=== PATIENT | female | born 1975 | race Caucasian/White ===

== ENCOUNTER → 2018-08-02 | Outpatient (CLI) | payer OTHER ==
[~2018-08-02] MED LIST: ACETAMINOPHEN-1 EAC1 PO; ALBUTEROL INHAL17 GM IH; CHERATUSSIN DA480 ML PO; COLACE100 MG; FLEXERIL PO; IBUPROFEN 600600 M1; LORTAB 5 MG/5001 TAB; OMEPRAZOLE40 MG PO; PREDNISONE 20 M20 MG PO; TOPAMAX50 MG PO; ZPAK PO
--- NOTE | 2018-08-05 13:07 | PATH ---
[address] [address] PATHOLOGY RPT PROCEDURE Name: ARCHANAJEFFREY Room: [facility]#: [id number] Admission: 08/02/18 Date of : 75 Discharge: Report #: [id number] Path Case #: [id number] Note [facility] Accession Number: [id number] TESTS RESULT FLAG UNITS REF RANGE LAB Clinician Provided Cytology Information No. of containers..01 Other (Miscellaneous) Source: LT BRST ABSCESS DIAGNOSIS: LT BRST ABSCESS NEGATIVE FOR MALIGNANT CELLS. EXTENSIVE ACUTE INFLAMMATORY CELLS TYPICAL OF ABSCESS. THIS INTERPRETATION INCLUDES EVALUATION OF A CELL BLOCK. Signed out by: 02 Marcus Corado MD, Pathologist NPI- [id number] Performed by: 01 Michelle Winston, Operations Intelligence ([facility]) Gross description: 01 5 ML, GREENISH/RED, CLOUDY /LCS FLAG LEGEND: L-Low Normal,H-High Normal,LL-Alert Low,HH-Alert High <-Panic Low,>-Panic High,A-Abnormal,AA-Critical Abnormal Performed at: [address] [place] [address] Scott William MD, [address] [place] [address] [facility], [place] [address] Marcus Corado MD, Specimen Comment: A courtesy copy of this report has been sent to Specimen Comment: [phone]. Specimen Comment: Report sent to Performed at: [address], [place], [place] [id number] MD Scott William MD Phone: [phone]
== END ==
LOC: M.RAD 10:54
DX: Z12.31 Encounter for screening mammogram for malignant neoplasm of breast (principal); N63.24 Unspecified lump in the left breast, lower inner quadrant; N63.21 Unspecified lump in the left breast, upper outer quadrant; Z90.12 Acquired absence of left breast and nipple

== ENCOUNTER 2019-07-20 20:04 | Emergency (ER) | payer OTHER ==
[~2019-07-20] VITALS: Ht 160 cm; Wt 59.0 kg
[2019-07-20 21:01] LABS: ABSOLUTE BASOPHILS 0.1 thou/uL (0.0-0.2); ABSOLUTE EOSINOPHILS 0.2 thou/uL (0.0-0.7); ABSOLUTE LYMPHOCYTES 4.1 thou/uL (0.8-5.3); ABSOLUTE MONOCYTES 0.9 thou/uL (0.0-1.2); ABSOLUTE NEUTROPHILS 7.6 thou/uL (1.6-8.1); BASOPHILS 0.7 %; EOSINOPHILS 1.7 %; HEMATOCRIT 35.8 % (37.0-47.0); LYMPHOCYTES 31.8 %; MCH 28.5 pg (26.0-34.0); MCHC 33.6 g/dL (28.0-37.0); MCV 84.9 fL (80.0-100.0); MONOCYTES 6.7 %; MPV 9.4 fl. (7.2-11.1); NUCLEATED RBCS 0 /100WBC; PLATELET COUNT* 322 thou/uL (150-400); POLYS 59.1 %; RBC 4.22 mil/uL (4.20-5.00); WBC 12.8 thou/uL (4.0-11.0)
[2019-07-20 21:07] LABS: CALCIUM 9.1 mg/dL (8.5-10.1); CREATININE 1.2 mg/dL (0.6-1.3); POTASSIUM 3.4 mmol/L (3.5-5.1)
[2019-07-20 21:12] LABS: TOTAL BILIRUBIN 0.2 mg/dL (<0.1-1.0); TOTAL PROTEIN 7.6 g/dL (6.4-8.2)
[2019-07-20 21:17] LABS: INR 0.9; PROTIME 9.5 Seconds (9.20-11.50)
[2019-07-20] MEDS ORDERED: TORADOL 10 MG T10 MG PO (22:45)
[2019-07-20 22:54] VITALS: BP 118/73
--- NOTE | 2019-07-21 15:49 | EKG ---
[place] [address] ELECTROCARDIOGRAM REPORT Name: JEFFREY MAGAÑA Room: [facility]#: [id number] Admission: 07/20/19 Attend Phys: Discharge: 07/20/19 Date of : 75 Report #: [id number] THIS REPORT FOR: //name// [facility] ED Test Date: 2019-07-20 Test Time: 20:09:49 Pat Name: JEFFREY GUTIERREZOVAN Department: Room: Gender: F Manager Contact: PATO : 1975 Requested By: Glenis Mayberry Order Number: [id number] Bravo MD: Feliberto Jones Measurements Intervals [place] Rate: 105 P: 68 SD: 173 QRS: -70 QRSD: 100 T: 53 QT: 352 QTc: 466 Interpretive Statements Sinus tachycardia LAD, consider left anterior fascicular block RSR' in V1 or V2, right VCD No previous ECG available for comparison Electronically Signed On 07-21-2019 15:49:18 PEDIATRIC SPEECH LANGUAGE PATHOLOGIST by Feliberto Jones [email or web address] <ELECTRONICALLY SIGNED> By: Feliberto Jones MD, [facility] 07/21/19 1549 08 08 Feliberto Jones MD, FACC /EPI
== END 2019-07-20 22:54 | disposition home or self-care (01) ==
LOC: M.ERS 20:04
PROVIDERS: Personal Emergency Response Attendant
DX: R07.89 Other chest pain (principal); F41.9 Anxiety disorder, unspecified; Z90.49 Acquired absence of other specified parts of digestive tract; Z90.711 Acquired absence of uterus with remaining cervical stump; Z98.890 Other specified postprocedural states